=== PATIENT | male | born 1950 | race Caucasian/White ===

== ENCOUNTER 2022-11-16 14:49 | Outpatient (CLI) | payer OTHER | END 2022-11-16 23:59 | disposition home or self-care (01) | LOC: CARD DIAG 14:49 | PROVIDERS: ATTEND Chiropractor | DX: I08.8 Other rheumatic multiple valve diseases (principal); I25.9 Chronic ischemic heart disease, unspecified; E03.9 Hypothyroidism, unspecified | CPT/HCPCS: 36415; 84439; 84443; 84481; 93306 ==

== ENCOUNTER 2022-12-28 09:51 | Outpatient (CLI) | payer OTHER | END 2022-12-28 23:59 | disposition home or self-care (01) | LOC: LAB 09:51 | PROVIDERS: ATTEND Chiropractor | DX: I25.9 Chronic ischemic heart disease, unspecified (principal); E03.9 Hypothyroidism, unspecified | CPT/HCPCS: 36415; 84439; 84443; 84481 ==